=== PATIENT | male | born 1985 | race Caucasian/White ===

== ENCOUNTER 2016-07-20 15:09 | Emergency (ER) | payer OTHER ==
[2016-07-20 15:51] VITALS: BP 122/79
--- NOTE | 2016-07-20 16:13 | UC ---
[facility] Dental HPI - HPI Summary HPI Summary: Patient has pain on upper right jaw. has had abcess in the past and tooth was removed. - History of Current Complaint Chief Complaint: UCDentalProblem Stated Complaint: DENTAL PAIN Time Seen by Provider: 07/20/16 15:42 Hx Obtained From: Patient Onset/Duration: Sudden Onset, Lasting Days Severity: Moderate Pain Intensity: 6 Pain Scale Used: 0-10 Numeric Aggravating: Chewing Alleviating: Nothing Related History: Previous Dental Care on Same Tooth - Allergies/Home Medications Allergies/Adverse Reactions: Allergies Allergy/AdvReac Type Severity Reaction Status Date / Time No Known Allergies Allergy Verified 07/20/16 15:51 Home Medications: Home Medications Albuterol HFA INHALER* [Ventolin HFA Inhaler*] 2 puff INH Q4H PRN 07/20/16 [ History Confirmed 07/20/16] Atorvastatin* [Lipitor*] 20 mg PO 2100 07/20/16 [History Confirmed 07/20/16] Insulin GLARGINE(*) [Lantus(*)] 80 unit BID 07/20/16 [History Confirmed 07/20/16 ] Insulin LISPRO* [HumaLOG*] 20 unit SUBCUT AC 07/20/16 [History Confirmed ] Omeprazole [Prilosec CAP 40 MG] 40 mg PO BEDTIME 07/20/16 [History Confirmed 02/26] Sertraline* [Zoloft*] 25 mg PO BEDTIME 07/20/16 [History Confirmed 07/20/16] Tizanidine HCl [Zanaflex] 4 mg PO TID PRN 07/20/16 [History Confirmed 07/20/16] PMH/Surg Hx/FS Hx/Imm Hx Previously Healthy: Yes Endocrine History Of: Reports: Diabetes - Surgical History Surgical History: None - Family History Known Family History: Positive: Hypertension, Diabetes - Social History Alcohol Use: None Substance Use Type: None Smoking Status (MU): Heavy Every Day Tobacco Smoker Type: Cigarettes Amount Used/How Often: 1/2-1 ppd Review of Systems Constitutional: Fatigue Skin: Negative Eyes: Negative ENT: Dental Pain, Sore Throat, Ear Ache Respiratory: Negative Cardiovascular: Negative Gastrointestinal: Negative Genitourinary: Negative Motor: Negative Neurovascular: Negative Musculoskeletal: Edema - right facial swelling Neurological: Negative Psychological: Negative All Other Systems Reviewed And Are Negative: Yes Physical Exam Triage Information Reviewed: Yes Appearance: Well-Nourished, Ill-Appearing, Pain Distress Vital Signs: Initial Vital Signs Temp 98.8 F 07/20/16 15:42 Pulse 94 07/20/16 15:42 Resp 17 07/20/16 15:42 BP 122/79 07/20/16 15:42 Pulse Ox 97 07/20/16 15:42 Vital Signs Reviewed: Yes Eye Exam: Normal Eyes: Positive: Conjunctiva Clear ENT: Positive: Pharynx normal, Nasal congestion, TMs normal Dental Exam: Other Dental: Positive: Percussion Tenderness @, Gross Decay/Caries @, Abscess @ - above emtpy socket on upper jaw Neck exam: Normal Neck: Positive: Supple, Nontender, Enlarged Nodes @ - right submandibular Respiratory Exam: Normal Respiratory: Positive: Chest non-tender, Lungs clear, Normal breath sounds Cardiovascular Exam: Normal Cardiovascular: Positive: RRR, No Murmur, Pulses Normal Abdominal Exam: Normal Abdomen Description: Positive: Nontender, No Organomegaly, Soft Bowel Sounds: Positive: Present Musculoskeletal Exam: Normal Musculoskeletal: Positive: Strength Intact, ROM Intact, No Edema Neurological Exam: Normal Neurological: Positive: Alert, Muscle Tone Normal Psychological Exam: Normal Skin Exam: Normal Dental Complaint Course/Dx - Course Course Of Treatment: hx obtained, exam performed, medication reviewed. HCS reviewed, patient should have oxycodone left but states that he has exhausted that supply. Will prescribe 2 days of NORCO for the pain as well as an antibiotic. recommend calling Dentist in morning for a follow up appointment. - Differential Dx/Diagnosis Differential Diagnosis/Dx: Dental Abscess, Dental Caries Provider Diagnoses: dental abcess. facial swelling Discharge - Discharge Plan Condition: Stable Disposition: HOME Prescriptions: Amoxicillin/Clavulanate TAB* [Augmentin TAB 875*] 875 mg PO BID #20 tab HYDROcodone/ACETAMIN 5-325 MG* [Agra 5-325 TAB*] 1 tab PO Q8H PRN #6 tab MDD 15 mg PRN Reason: Pain Patient Education Materials: Dental Abscess (ED) Additional Instructions: take the medication as directed and follow up with the dentist. If your sugars go higher and you become symptomatic follow up with the [facility] for insulin adjustment.
== END 2016-07-20 16:18 | disposition home or self-care (01) ==
LOC: UCCORT 15:09
DX: K04.7 Periapical abscess without sinus (principal); E11.9 Type 2 diabetes mellitus without complications; Z79.4 Long term (current) use of insulin; F17.210 Nicotine dependence, cigarettes, uncomplicated
CPT/HCPCS: 99201; G0463

== ENCOUNTER 2016-10-13 23:16 | Inpatient (IN) | payer OTHER ==
[2016-10-14] MEDS ORDERED: NS 0.9% 1000 ML* 1,000 ML IV ONE (00:14)
[2016-10-14 00:54] LABS: Hematocrit 41 % (42-52); Hemoglobin 13.7 g/dl (14.0-18.0); Mean Corpuscular HGB Conc 33 g/dl (31-36); Mean Corpuscular Hemoglobin 30 pg (27-31); Mean Corpuscular Volume 90 fL (80-94); Mean Platelet Volume 8 um3 (7.4-10.4); Red Blood Count 4.56 10^6/ul (4.0-5.4); Red Cell Distribution Width 16 % (10.5-15); White Blood Count 11.4 10^3/ul (3.5-10.8)
[2016-10-14 01:00] LABS: Albumin 3.8 g/dL (3.2-5.2); BUN/Creatinine Ratio 38.3 (8-20); EGFR African American 264.5 (>60); EGFR Non-African American 205.7 (>60); Globulin 2.7 g/dL (2-4); Magnesium 1.5 mg/dL (1.9-2.7); Total Bilirubin 0.4 mg/dL (0.2-1.0); Total Protein 6.5 g/dL (6.4-8.9)
[2016-10-14 01:07] LABS: Urine Bacteria Absent (Absent); Urine Bilirubin Negative (Negative); Urine Glucose Negative (Negative); Urine Nitrite Negative (Negative)
[2016-10-14] MEDS ORDERED: Dextrose 50% Syringe 50 ML* 25 GM/50 ML SYRINGE IV PUSH ONE ×2 (01:19→04:32)
[2016-10-14 01:24] LABS: Potassium 3.3 mmol/L (3.5-5.0)
--- NOTE | 2016-10-14 01:45 | ED ---
Morelia Sanz Salem, scribed for Josh Lewis MD on 10/14/16 at 0135 . HPI Diabetic - HPI Summary HPI Summary: Patient is a 31 y/o male who presents to the ED with hypoglycemia since this morning. He reports he has not been able to keep his sugar up all day despite continuous PO intake. He states it was 26 this morning and the highest it has been all day is 108. Pts PCP is in [place], [place] and has not seen her in over 2 weeks. He reports his sugar is typically high and that he has not taken insulin today. - History Of Current Complaint Chief Complaint: EDDiabeticProb Time Seen by Provider: 10/14/16 00:08 Hx Obtained From: Patient Onset/Duration: Gradual Onset, Lasting Hours Timing: Intermittent Episode Lasting Severity Initially: Moderate Severity Currently: Moderate Character: Alert Aggravating: Nothing Alleviating: Food Associated Signs & Symptoms: Negative - Allergies/Home Medications Allergies/Adverse Reactions: Allergies Allergy/AdvReac Type Severity Reaction Status Date / Time No Known Allergies Allergy Verified 10/13/16 23:20 Home Medications: Home Medications Albuterol HFA INHALER* [Ventolin HFA Inhaler*] 2 puff INH Q4H PRN 10/14/16 [ History Confirmed 10/14/16] Atorvastatin* [Lipitor*] 10 mg PO 2100 10/14/16 [History Confirmed 10/14/16] Escitalopram Oxalate [Lexapro] 10 mg PO DAILY 10/14/16 [History Confirmed ] Insulin GLARGINE(*) [Lantus(*)] 80 units SUBCUT BID 10/14/16 [History Confirmed 10/14/16] Insulin LISPRO* [HumaLOG*] 20 units SUBCUT TID WITH MEALS 10/14/16 [History Confirmed 10/14/16] Omeprazole 40 mg PO DAILY 10/14/16 [History Confirmed 10/14/16] oxyCODONE TAB* [Roxycodone TAB 5 mg*] 5 mg PO Q8H PRN 10/14/16 [History Confirmed 10/14/16] PMH/Surg Hx/FS Hx/Imm Hx Endocrine/Hematology History: Reports: Hx Diabetes Infectious Disease History: No Infectious Disease History: Denies: Traveled Outside the in Last 30 Days - Family History Known Family History: Positive: Cardiac Disease, Diabetes, Other - [place]. Asthma. - Social History Alcohol Use: None Hx Substance Use: No Substance Use Type: Reports: None Hx Tobacco Use: Yes Smoking Status (MU): Heavy Every Day Tobacco Smoker Review of Systems Negative: Fever Positive: Other - Hypoglycemia. All Other Systems Reviewed And Are Negative: Yes Physical Exam Triage Information Reviewed: Yes Vital Signs On Initial Exam: Initial Vitals Temp Pulse Resp BP Pulse Ox 98.0 F 111 15 127/74 100 10/13/16 23:17 10/13/16 23:17 10/13/16 23:17 10/13/16 23:17 10/13/16 23:17 Vital Signs Reviewed: Yes Appearance: Positive: Well-Appearing, No Pain Distress Skin: Positive: Warm Head/Face: Positive: Normal Head/Face Inspection Eyes: Positive: EOMI, ANDREA ENT: Positive: Hearing grossly normal Neck: Positive: Supple, Nontender Respiratory/Lung Sounds: Positive: Breath Sounds Present Cardiovascular: Positive: RRR Abdomen Description: Positive: Nontender, Soft Bowel Sounds: Positive: Present Musculoskeletal: Positive: Strength/ROM Intact Neurological: Positive: Sensory/Motor Intact, Alert, Oriented to Person Place, Time Psychiatric: Positive: Affect/Mood Appropriate - [place] Coma Scale Coma Scale Total: 15 Diagnostics - Vital Signs Vital Signs Temp Pulse Resp BP Pulse Ox 10/13/16 23:17 98.0 F 111 15 127/74 100 - Laboratory Lab Results: Lab Results 10/14/16 10/14/16 10/14/16 Range/Units 00:30 00:30 00:45 WBC 11.4 H (3.5-10.8) 10^3/ul RBC 4.56 (4.0-5.4) 10^6/ul Hgb 13.7 L (14.0-18.0) g/dl Hct 41 L (42-52) % MCV 90 (80-94) fL MCH 30 (27-31) pg MCHC 33 (31-36) g/dl RDW 16 H (10.5-15) % Plt Count 290 (150-450) 10^3/ul MPV 8 (7.4-10.4) um3 Neut % (Auto) 62.0 (38-83) % Lymph % (Auto) 29.6 (25-47) % [place] % (Auto) 6.9 (1-9) % Eos % (Auto) 1.1 (0-6) % Baso % (Auto) 0.4 (0-2) % Absolute Neuts (auto) 7.1 (1.5-7.7) 10^3/ul Absolute Lymphs (auto) 3.4 (1.0-4.8) 10^3/ul Absolute Monos (auto) 0.8 (0-0.8) 10^3/ul Absolute Eos (auto) 0.1 (0-0.6) 10^3/ul Absolute Basos (auto) 0 (0-0.2) 10^3/ul Absolute Nucleated RBC 0.01 10^3/ul Nucleated RBC % 0.1 Sodium 138 (133-145) mmol/L Potassium 3.3 L (3.5-5.0) mmol/L Chloride 105 (101-111) mmol/L Carbon Dioxide 23 (22-32) mmol/L Anion Gap 10 (2-11) mmol/L BUN 18 (6-24) mg/dL Creatinine 0.47 L (0.67-1.17) mg/dL Est GFR ( Amer) 264.5 (>60) Est GFR (Non-Af Amer) 205.7 (>60) BUN/Creatinine Ratio 38.3 H (8-20) Glucose 46 L (70-100) mg/dL Calcium 9.0 (8.6-10.3) mg/dL Magnesium 1.5 L (1.9-2.7) mg/dL Total Bilirubin 0.40 (0.2-1.0) mg/dL AST 23 (13-39) U/L ALT 80 H (7-52) U/L Alkaline Phosphatase 123 H (34-104) U/L Total Protein 6.5 (6.4-8.9) g/dL Albumin 3.8 (3.2-5.2) g/dL Globulin 2.7 (2-4) g/dL Albumin/Globulin Ratio 1.4 (1-3) Urine Color Yellow Urine Appearance Clear Urine pH 5.0 (5-9) Ur Specific [place] 1.027 (1.010-1.030) Urine Protein 1+(30 mg/dl) H (Negative) Urine Ketones Trace H (Negative) Urine Blood Negative (Negative) Urine Nitrate Negative (Negative) Urine Bilirubin Negative (Negative) Urine Urobilinogen Positive H (Negative) Ur Leukocyte Esterase Negative (Negative) Urine WBC (Auto) Trace(0-5/hpf) (Absent) Urine RBC (Auto) 2+(6-10/hpf) H (Absent) Calcium Oxalate Crystal Present H (Absent) Urine Bacteria Absent (Absent) Urine Glucose Negative (Negative) Urine Ascorbic Acid * H (Negative) Result Diagrams: 10/14/16 00:30 10/14/16 00:30 Lab Statement: Any lab studies that have been ordered have been reviewed, and results considered in the medical decision making process. Re-Evaluation - Re-Evaluation First Eval Re-Evaluation Time: 04:37 Change: Unchanged - pt still with recurrent hypoglycemia Comment: Informed pt of plan to admit. He is agreeable. Diabetic Course/Dx - Course Course Of Treatment: 31 y/o male presents with hypoglycemia since this morning. He received IV fluids and Dextrose in the ED, along with apple juice and crackers. POC Glucose (mg/dL): @ 2329 was 83, @ 0205 was 110, @ 0312 was 67, and @ [address] Romo of pt's case. Pt will be admitted. - Diagnoses Provider Diagnoses: Hypoglycemia - Physician Notifications Discussed Care of Patient With: Dr. Romo (hospitalist) @ 0434. Informed him of pt's case. Will admit. Instructed by Provider To: Admit As Inpatient - Critical Care Time Critical Care Time: 30-74 min Discharge - Discharge Plan Condition: Fair Disposition: ADMITTED TO [facility] The documentation as recorded by the Morelia mike Salem accurately reflects the service I personally performed and the decisions made by , Josh Lewis MD.
[2016-10-14] MEDS ORDERED: Dextrose 50% Syringe 50 ML* 25 GM/50 ML SYRINGE ONE (04:33)
[2016-10-14] MEDS ORDERED: Albuterol HFA INHALER* 8 gm MDI INH PRN (05:59)
[2016-10-14] MEDS: D5W 1/2 NS 1000 ML BAG* 1,000 ML IV SCH ×2 (06:34→15:36)
[2016-10-14] MEDS: Omeprazole CAP* 20 MG PO SCH (08:09)
[2016-10-14] MEDS: Citalopram TAB* 20 MG PO SCH (08:10)
[2016-10-14] MEDS: oxyCODONE TAB* 5 MG TAB PO PRN ×2 (08:15→22:36)
--- NOTE | 2016-10-14 10:16 | PN ---
Subjective Date of Service: 10/14/16 Interval History: Patient seen this morning. Says he is feeling much improved. Cannot think of any reason why his BGs may have been low. Does not think he took his insulin incorrectly, has been on this dose for some time. Last injection was 4/2 prior to bed when he took his Lantus 80 units, woke up several hours later with BG in 20s. Most recent medication change was Effexor which was 3 weeks ago. Says he has had a huge amount of stress in his life recently, particularly in the past week. Family History: Unchanged from Admission Social History: Unchanged from Admission Past Medical History: Unchanged from Admission Objective Active Medications: Albuterol (Ventolin Hfa Inhaler*) 2 puff INH Q4H PRN Atorvastatin Calcium (Lipitor*) 10 mg PO 2100 DILAN Citalopram Hydrobromide (Celexa Tab*) 20 mg PO DAILY DILAN Dextrose/Sodium Chloride (D5w 1/2 Ns 1000 Ml Bag*) 1,000 mls @ 125 mls/hr IV PER RATE DILAN Omeprazole (Prilosec Cap*) 40 mg PO 0730 DILAN Oxycodone HCl (Roxycodone Tab*) 5 mg PO Q8H PRN Vital Signs 10/14/16 10/14/16 07:52 08:15 Temperature 97.5 F Pulse Rate 98 Respiratory 18 18 Rate Blood Pressure 125/77 (mmHg) O2 Sat by Pulse 98 Oximetry Oxygen Devices in Use Now: None Appearance: Young, M, laying in bed in NAD Eyes: No Scleral Icterus Ears/Nose/Mouth/Throat: Mucous Membranes Moist Neck: NL Appearance and Movements; NL JVP Respiratory: Symmetrical Chest Expansion and Respiratory Effort, - - Mild expiratory wheezing Cardiovascular: NL Sounds; No Murmurs; No JVD, RRR Abdominal: NL Sounds; No Tenderness; No Distention Lymphatic: No Cervical Adenopathy Extremities: No Edema Skin: No Rash or Ulcers Neurological: Alert and Oriented x 3 Result Diagrams: 10/14/16 00:30 10/14/16 00:30 Assess/Plan/Problems-Billing Assessment: Hypoglycemia in a 31 yo M with hx of DM, asthma, HLD, depression, chronic pain - Patient Problems (1) Hypoglycemia Current Visit: Yes Comment: Etiology not quite clear but I suspect likely related to his insulin, perhaps his stress caused him to take an increased or double dose. Holding insulin for now. Continue D5 infusion and close monitoring of BGs, will try to wean off today. (2) Asthma Current Visit: Yes Comment: Continue albuterol inhaler (3) HLD (hyperlipidemia) Current Visit: Yes Comment: Continue statin (4) DVT prophylaxis Current Visit: Yes Comment: Low risk, ambulate
[2016-10-14] MEDS ORDERED: D5W 1/2 NS 1000 ML BAG* 1,000 ML IV SCH (16:08)
--- NOTE | 2016-10-14 17:12 | HP ---
HISTORY AND PHYSICAL: DATE OF ADMISSION: 10/14/16 CHIEF COMPLAINT: Low blood sugar. HISTORY OF PRESENT ILLNESS: The patient is a 31-year-old gentleman, who is at the [facility] with a chief complaint that his blood sugars keep dropping. He said it started yesterday morning when he noticed his sugars were in the 20s. He said normally they are between 100 and 200. He says last time he took his insulin was on Thursday night. He denies any change in his diet. He denies taking too much insulin. he finally came in because he could not keep them up. He has noticed that he has lost 50 pounds since July. He is very depressed and anxious because he is in a custody baig with this . Furthermore, he is quite stressed because his is with another man' s child. PAST MEDICAL HISTORY: Significant for diabetes mellitus, GERD, depression, anxiety, insomnia, hyperlipidemia, and asthma. CURRENT MEDICATIONS: 1. Albuterol inhaler 2 puffs every 4 hours as needed. 2. Oxycodone 5 mg every 8 hours as needed. 3. Lexapro 10 mg daily. 4. Omeprazole 40 mg daily. 5. Lipitor 10 mg daily. 6. Lispro insulin 20 units subcu t.i.d. with meals. 7. Lantus insulin units subcu twice daily. ALLERGIES: He has no known drug allergies. FAMILY HISTORY: Mother alive and well, but does not know his father. SOCIAL HISTORY: He smokes 1 pack a day for 20 years. No alcohol. No recreational drug use. He is a [id number] dad. He is . He has 4 children. REVIEW OF SYSTEMS: A 14-point review of systems is completed with the patient. All pertinent positives and negatives are in the history of present illness, otherwise negative. PHYSICAL EXAMINATION GENERAL: Pleasant gentleman sitting up in bed, in no acute distress. VITAL SIGNS: Blood pressure 118/67, pulse ox 96%, heart rate 94 beats per minute, temperature 98 degrees. HEENT: Normocephalic, atraumatic. Pupils equal, round, and reactive to light. Moist mucous membranes. NECK: Supple. No JVD, bruits, palpable thyroid, or lymphadenopathy. CHEST: Clear to auscultation and percussion bilaterally. CARDIOVASCULAR: S1, S2 appreciated. ABDOMEN: Positive bowel sounds in all 4 quadrants. Soft, nontender, nondistended. No hepatosplenomegaly. EXTREMITIES: No cyanosis, clubbing, or edema. +2 peripheral pulses bilaterally. NEURO: Alert and oriented x3. Moves all extremities. SKIN: No rashes or abnormalities. DIAGNOSTIC STUDIES/LAB DATA: White count 11.4, hemoglobin 13.7, hematocrit 41 , platelets are 290. Sodium 138, potassium 3.3, chloride 105, CO2 23, BUN 18, creatinine 0.47, glucose is 46. Urinalysis: +2 rbc's, some calcium oxalate crystals, otherwise unremarkable. ASSESSMENT AND PLAN: 1. Hypoglycemia. It is unclear as to the etiology but I suspect that the patient may have taken too much of his own insulin. He is depressed and he is anxious, he has lost weight, and he is supposed to go fight for custody of his children today. Nevertheless, we will admit the patient, place him on D10 half- normal saline drip, check his sugars q.2 hours. Other etiologies include possible insulinoma, but I think this is highly unlikely. 2. Gastroesophageal reflux disease, stable. Continue PPI. 3. Depression. Continue Lexapro. 4. Hyperlipidemia. Continue Lipitor. 5. FEN. Regular diet. 6. The patient is a full code. TIME SPENT: Over 75 minutes was spent on this H and P; more than 40 minutes of which was spent in direct [id number] with the patient in evaluation, physical exam, counseling, and coordination of care. CC: [facility]* [id number]/CPS #: [id number] MTDD
[2016-10-14] MEDS ORDERED: D10W IV SCH ×2 (20:00)
[2016-10-14] MEDS ORDERED: 1/2 NS IV SCH ×2 (20:00)
[2016-10-14] MEDS ORDERED: Atorvastatin* 10 MG TAB PO SCH (21:00)
[2016-10-14] MEDS: 1/2 NS IV SCH ×2 (21:44)
[2016-10-14] MEDS: D10W IV SCH ×2 (21:44)
[2016-10-14] MEDS: Atorvastatin* 10 MG TAB PO SCH (22:38)
[2016-10-15] MEDS: 1/2 NS IV SCH ×6 (04:20→17:28)
[2016-10-15] MEDS: D10W IV SCH ×6 (04:20→17:28)
[2016-10-15] MEDS: Citalopram TAB* 20 MG PO SCH (10:49)
[2016-10-15] MEDS: Omeprazole CAP* 20 MG PO SCH (10:49)
--- NOTE | 2016-10-15 13:43 | PN ---
Subjective Date of Service: 10/15/16 Interval History: Patient seen this morning. No new issues. Still with hypoglycemia at times, gtt increased to D10. Has been taking good PO. Family History: Unchanged from Admission Social History: Unchanged from Admission Past Medical History: Unchanged from Admission Objective Active Medications: Albuterol (Ventolin Hfa Inhaler*) 2 puff INH Q4H PRN Atorvastatin Calcium (Lipitor*) 10 mg PO BEDTIME DILAN Citalopram Hydrobromide (Celexa Tab*) 20 mg PO DAILY DILAN Sodium Chloride 77 meq/ (Dextrose) 1,019.25 mls @ 150 mls/hr IV Q7H DILAN Omeprazole (Prilosec Cap*) 40 mg PO 0730 DILAN Oxycodone HCl (Roxycodone Tab*) 5 mg PO Q8H PRN Vital Signs 10/14/16 10/14/16 10/14/16 15:02 16:25 19:36 Temperature 97.7 F 97.6 F Pulse Rate 91 94 Respiratory 18 18 16 Rate Blood Pressure 135/65 119/71 (mmHg) O2 Sat by Pulse 98 97 Oximetry 10/14/16 10/14/16 10/15/16 22:36 23:27 00:36 Temperature 98.3 F Pulse Rate 93 Respiratory 18 18 18 Rate Blood Pressure 117/52 (mmHg) O2 Sat by Pulse 97 Oximetry 10/15/16 10/15/16 10/15/16 04:20 07:12 08:00 Temperature 97.4 F Pulse Rate 94 97 Respiratory 20 18 18 Rate Blood Pressure 114/46 123/71 (mmHg) O2 Sat by Pulse 97 98 Oximetry 10/15/16 10/15/16 08:23 12:51 Temperature 97.6 F 97.8 F Pulse Rate 88 94 Respiratory 18 18 Rate Blood Pressure 122/72 130/80 (mmHg) O2 Sat by Pulse 98 98 Oximetry Oxygen Devices in Use Now: None Appearance: Young, M, laying in bed in NAD Eyes: No Scleral Icterus Ears/Nose/Mouth/Throat: Mucous Membranes Moist Neck: NL Appearance and Movements; NL JVP Respiratory: Symmetrical Chest Expansion and Respiratory Effort, Clear to Auscultation Cardiovascular: NL Sounds; No Murmurs; No JVD, RRR Abdominal: NL Sounds; No Tenderness; No Distention Lymphatic: No Cervical Adenopathy Extremities: No Edema Skin: No Rash or Ulcers Neurological: Alert and Oriented x 3 Result Diagrams: 10/14/16 00:30 10/14/16 00:30 Additional Lab and Data: Lab Results 10/14/16 10/14/16 10/14/16 Range/Units 00:30 00:30 00:45 WBC 11.4 H (3.5-10.8) 10^3/ul RBC 4.56 (4.0-5.4) 10^6/ul Hgb 13.7 L (14.0-18.0) g/dl Hct 41 L (42-52) % MCV 90 (80-94) fL MCH 30 (27-31) pg MCHC 33 (31-36) g/dl RDW 16 H (10.5-15) % Plt Count 290 (150-450) 10^3/ul MPV 8 (7.4-10.4) um3 Neut % (Auto) 62.0 (38-83) % Lymph % (Auto) 29.6 (25-47) % [place] % (Auto) 6.9 (1-9) % Eos % (Auto) 1.1 (0-6) % Baso % (Auto) 0.4 (0-2) % Absolute Neuts (auto) 7.1 (1.5-7.7) 10^3/ul Absolute Lymphs (auto) 3.4 (1.0-4.8) 10^3/ul Absolute Monos (auto) 0.8 (0-0.8) 10^3/ul Absolute Eos (auto) 0.1 (0-0.6) 10^3/ul Absolute Basos (auto) 0 (0-0.2) 10^3/ul Absolute Nucleated RBC 0.01 10^3/ul Nucleated RBC % 0.1 Sodium 138 (133-145) mmol/L Potassium 3.3 L (3.5-5.0) mmol/L Chloride 105 (101-111) mmol/L Carbon Dioxide 23 (22-32) mmol/L Anion Gap 10 (2-11) mmol/L BUN 18 (6-24) mg/dL Creatinine 0.47 L (0.67-1.17) mg/dL Est GFR ( Amer) 264.5 (>60) Est GFR (Non-Af Amer) 205.7 (>60) BUN/Creatinine Ratio 38.3 H (8-20) Glucose 46 L (70-100) mg/dL Calcium 9.0 (8.6-10.3) mg/dL Magnesium 1.5 L (1.9-2.7) mg/dL Total Bilirubin 0.40 (0.2-1.0) mg/dL AST 23 (13-39) U/L ALT 80 H (7-52) U/L Alkaline Phosphatase 123 H (34-104) U/L Total Protein 6.5 (6.4-8.9) g/dL Albumin 3.8 (3.2-5.2) g/dL Globulin 2.7 (2-4) g/dL Albumin/Globulin Ratio 1.4 (1-3) Urine Color Yellow Urine Appearance Clear Urine pH 5.0 (5-9) Ur Specific [place] 1.027 (1.010-1.030) Urine Protein 1+(30 mg/dl) H (Negative) Urine Ketones Trace H (Negative) Urine Blood Negative (Negative) Urine Nitrate Negative (Negative) Urine Bilirubin Negative (Negative) Urine Urobilinogen Positive H (Negative) Ur Leukocyte Esterase Negative (Negative) Urine WBC (Auto) Trace(0-5/hpf) (Absent) Urine RBC (Auto) 2+(6-10/hpf) H (Absent) Calcium Oxalate Crystal Present H (Absent) Urine Bacteria Absent (Absent) Urine Glucose Negative (Negative) Urine Ascorbic Acid * H (Negative) Assess/Plan/Problems-Billing Assessment: Hypoglycemia in a 31 yo M with hx of DM, asthma, HLD, depression, chronic pain - Patient Problems (1) Hypoglycemia Current Visit: Yes Comment: Etiology not quite clear but I suspect likely related to his insulin, perhaps his stress caused him to take an increased or double dose. Holding insulin for now. Continue D10 infusion and close monitoring of BGs. Cortisol this AM was slightly low but was drawn late, will recheck a 6 AM cortisol level in the AM. Will ask Endocrine to evaluate if not seeing improvement by tomorrow. (2) Asthma Current Visit: Yes Comment: Continue albuterol inhaler (3) HLD (hyperlipidemia) Current Visit: Yes Comment: Continue statin (4) DVT prophylaxis Current Visit: Yes Comment: Low risk, ambulate
[2016-10-15] MEDS: Atorvastatin* 10 MG TAB PO SCH (19:57)
[2016-10-16] MEDS: 1/2 NS IV SCH ×8 (00:25→20:52)
[2016-10-16] MEDS: D10W IV SCH ×8 (00:25→20:52)
[2016-10-16] MEDS: oxyCODONE TAB* 5 MG TAB PO PRN ×2 (00:25→11:02)
[2016-10-16] MEDS: Omeprazole CAP* 20 MG PO SCH (07:56)
[2016-10-16] MEDS: Citalopram TAB* 20 MG PO SCH (07:56)
[2016-10-16] MEDS ORDERED: Cosyntropin* 0.25 MG VIAL IV ONE (08:30)
[2016-10-16] MEDS ORDERED: Cosyntropin* 0.001 MG in Sodium Chloride * 0.5 ML IV ONE (08:30)
--- NOTE | 2016-10-16 10:39 | PN ---
Subjective Date of Service: 10/16/16 Interval History: BGs still low this AM intermittently. Continues on dextrose gtt. No new symptoms. Patient states he is feeling depressed due to outside circumstances. Only has been on Lexapro for "a few weeks". Family History: Unchanged from Admission Social History: Unchanged from Admission Past Medical History: Unchanged from Admission Objective Active Medications: Albuterol (Ventolin Hfa Inhaler*) 2 puff INH Q4H PRN Atorvastatin Calcium (Lipitor*) 10 mg PO BEDTIME DILAN Citalopram Hydrobromide (Celexa Tab*) 20 mg PO DAILY DILAN Sodium Chloride 77 meq/ (Dextrose) 1,019.25 mls @ 150 mls/hr IV Q7H DILAN Omeprazole (Prilosec Cap*) 40 mg PO 0730 DILAN Oxycodone HCl (Roxycodone Tab*) 5 mg PO Q8H PRN Vital Signs 10/15/16 10/15/16 10/15/16 12:51 15:22 19:46 Temperature 97.8 F 97.7 F 98.1 F Pulse Rate 94 99 99 Respiratory 18 17 16 Rate Blood Pressure 130/80 132/75 130/77 (mmHg) O2 Sat by Pulse 98 98 97 Oximetry 10/15/16 10/15/16 10/16/16 20:00 23:31 00:25 Temperature 98.3 F Pulse Rate 107 Respiratory 16 16 Rate Blood Pressure 128/70 (mmHg) O2 Sat by Pulse 98 Oximetry 10/16/16 10/16/16 10/16/16 02:25 07:52 08:00 Temperature 97.4 F Pulse Rate 97 Respiratory 16 16 16 Rate Blood Pressure 108/57 (mmHg) O2 Sat by Pulse 97 Oximetry Oxygen Devices in Use Now: None Appearance: Young, M, laying in bed in NAD Eyes: No Scleral Icterus Ears/Nose/Mouth/Throat: Mucous Membranes Moist Neck: NL Appearance and Movements; NL JVP Respiratory: Symmetrical Chest Expansion and Respiratory Effort, Clear to Auscultation Cardiovascular: NL Sounds; No Murmurs; No JVD, RRR Abdominal: NL Sounds; No Tenderness; No Distention Lymphatic: No Cervical Adenopathy Extremities: No Edema Skin: No Rash or Ulcers Neurological: Alert and Oriented x 3 Result Diagrams: 10/14/16 00:30 10/14/16 00:30 Additional Lab and Data: Lab Results 10/14/16 10/14/16 10/14/16 Range/Units 00:30 00:30 00:45 WBC 11.4 H (3.5-10.8) 10^3/ul RBC 4.56 (4.0-5.4) 10^6/ul Hgb 13.7 L (14.0-18.0) g/dl Hct 41 L (42-52) % MCV 90 (80-94) fL MCH 30 (27-31) pg MCHC 33 (31-36) g/dl RDW 16 H (10.5-15) % Plt Count 290 (150-450) 10^3/ul MPV 8 (7.4-10.4) um3 Neut % (Auto) 62.0 (38-83) % Lymph % (Auto) 29.6 (25-47) % [place] % (Auto) 6.9 (1-9) % Eos % (Auto) 1.1 (0-6) % Baso % (Auto) 0.4 (0-2) % Absolute Neuts (auto) 7.1 (1.5-7.7) 10^3/ul Absolute Lymphs (auto) 3.4 (1.0-4.8) 10^3/ul Absolute Monos (auto) 0.8 (0-0.8) 10^3/ul Absolute Eos (auto) 0.1 (0-0.6) 10^3/ul Absolute Basos (auto) 0 (0-0.2) 10^3/ul Absolute Nucleated RBC 0.01 10^3/ul Nucleated RBC % 0.1 Sodium 138 (133-145) mmol/L Potassium 3.3 L (3.5-5.0) mmol/L Chloride 105 (101-111) mmol/L Carbon Dioxide 23 (22-32) mmol/L Anion Gap 10 (2-11) mmol/L BUN 18 (6-24) mg/dL Creatinine 0.47 L (0.67-1.17) mg/dL Est GFR ( Amer) 264.5 (>60) Est GFR (Non-Af Amer) 205.7 (>60) BUN/Creatinine Ratio 38.3 H (8-20) Glucose 46 L (70-100) mg/dL Calcium 9.0 (8.6-10.3) mg/dL Magnesium 1.5 L (1.9-2.7) mg/dL Total Bilirubin 0.40 (0.2-1.0) mg/dL AST 23 (13-39) U/L ALT 80 H (7-52) U/L Alkaline Phosphatase 123 H (34-104) U/L Total Protein 6.5 (6.4-8.9) g/dL Albumin 3.8 (3.2-5.2) g/dL Globulin 2.7 (2-4) g/dL Albumin/Globulin Ratio 1.4 (1-3) Urine Color Yellow Urine Appearance Clear Urine pH 5.0 (5-9) Ur Specific [place] 1.027 (1.010-1.030) Urine Protein 1+(30 mg/dl) H (Negative) Urine Ketones Trace H (Negative) Urine Blood Negative (Negative) Urine Nitrate Negative (Negative) Urine Bilirubin Negative (Negative) Urine Urobilinogen Positive H (Negative) Ur Leukocyte Esterase Negative (Negative) Urine WBC (Auto) Trace(0-5/hpf) (Absent) Urine RBC (Auto) 2+(6-10/hpf) H (Absent) Calcium Oxalate Crystal Present H (Absent) Urine Bacteria Absent (Absent) Urine Glucose Negative (Negative) Urine Ascorbic Acid * H (Negative) Assess/Plan/Problems-Billing Assessment: Hypoglycemia in a 31 yo M with hx of DM, asthma, HLD, depression, chronic pain - Patient Problems (1) Hypoglycemia Current Visit: Yes Comment: BGs continue to be low on dextrose. Cortisol level low this AM. Will check cosyntropin stim test, will also check ACTH, renin , aldosterone, 21-hydroxylase level. May be adrenal insufficiency, will likely start hydrocortisone after testing. (2) Asthma Current Visit: Yes Comment: Continue albuterol inhaler (3) HLD (hyperlipidemia) Current Visit: Yes Comment: Continue statin (4) Depression Current Visit: Yes Comment: Started medications just within last few weeks, has signicant life stressors. Would prefer to continue with current regimen for now. (5) DVT prophylaxis Current Visit: Yes Comment: Low risk, ambulate
[2016-10-16] MEDS: Hydrocortisone TAB* 10 MG PO SCH (13:58)
[2016-10-16] MEDS: Hydrocortisone TAB* 5 MG PO SCH (17:25)
[2016-10-16] MEDS: Atorvastatin* 10 MG TAB PO SCH (20:06)
[2016-10-17] MEDS: 1/2 NS IV SCH ×6 (04:02→17:55)
[2016-10-17] MEDS: D10W IV SCH ×6 (04:02→17:55)
[2016-10-17] MEDS: Omeprazole CAP* 20 MG PO SCH (08:19)
[2016-10-17] MEDS: Hydrocortisone TAB* 10 MG PO SCH (08:20)
[2016-10-17] MEDS: Hydrocortisone TAB* 5 MG PO SCH (08:20)
[2016-10-17] MEDS: Citalopram TAB* 20 MG PO SCH (08:20)
[2016-10-17] MEDS ORDERED: Dextrose 50% Syringe 50 ML* 25 GM/50 ML SYRINGE IV PUSH PRN ×2 (08:57→09:10)
--- NOTE | 2016-10-17 09:13 | PN ---
Subjective Date of Service: 10/17/16 Interval History: Patient seen this morning. No new complaints. Continues to have episodes of hypoglycemia. States he has been on Metformin and Glipizide years ago but has none of that still present in the house. Family History: Unchanged from Admission Social History: Unchanged from Admission Past Medical History: Unchanged from Admission Objective Active Medications: Albuterol (Ventolin Hfa Inhaler*) 2 puff INH Q4H PRN Atorvastatin Calcium (Lipitor*) 10 mg PO BEDTIME DILAN Citalopram Hydrobromide (Celexa Tab*) 20 mg PO DAILY DILAN Dextrose (D50w Syringe 50 Ml*) 25 gm IV PUSH .FOR FS < 60 - SS PRN Sodium Chloride 77 meq/ (Dextrose) 1,019.25 mls @ 150 mls/hr IV Q7H DILAN Omeprazole (Prilosec Cap*) 40 mg PO 0730 DILAN Oxycodone HCl (Roxycodone Tab*) 5 mg PO Q8H PRN Vital Signs 10/16/16 10/16/16 10/16/16 11:02 13:02 16:56 Temperature 98.5 F Pulse Rate 103 Respiratory 18 18 17 Rate Blood Pressure 144/79 (mmHg) O2 Sat by Pulse 98 Oximetry 10/16/16 10/16/16 10/17/16 20:07 23:37 07:31 Temperature 97.6 F Pulse Rate 100 Respiratory 18 19 16 Rate Blood Pressure 125/57 (mmHg) O2 Sat by Pulse 97 Oximetry 10/17/16 07:32 Temperature Pulse Rate Respiratory 16 Rate Blood Pressure (mmHg) O2 Sat by Pulse Oximetry Oxygen Devices in Use Now: None Appearance: Young, M, laying in bed in NAD Eyes: No Scleral Icterus Ears/Nose/Mouth/Throat: Mucous Membranes Moist Neck: NL Appearance and Movements; NL JVP Respiratory: Symmetrical Chest Expansion and Respiratory Effort, Clear to Auscultation Cardiovascular: NL Sounds; No Murmurs; No JVD, RRR Abdominal: NL Sounds; No Tenderness; No Distention Lymphatic: No Cervical Adenopathy Extremities: No Edema Skin: No Rash or Ulcers Neurological: Alert and Oriented x 3 Result Diagrams: 10/14/16 00:30 10/14/16 00:30 Additional Lab and Data: Assess/Plan/Problems-Billing Assessment: Hypoglycemia in a 31 yo M with hx of DM, asthma, HLD, depression, chronic pain - Patient Problems (1) Hypoglycemia Current Visit: Yes Comment: BGs continue to be low on dextrose. Cortisol levels were low initially in AM but were higher prior to stim test and seems to have responded appropriately, discussed with Dr. Plunkett who will consult on the patient. Will check abdominal US to evaluate for insulinoma. Will add on insulin level, proinsulin, c pepetide and IGF1. ACTH, renin, aldosterone, 21- hydroxylase level pending. (2) Asthma Current Visit: Yes Comment: Continue albuterol inhaler (3) HLD (hyperlipidemia) Current Visit: Yes Comment: Continue statin (4) Depression Current Visit: Yes Comment: Started medications just within last few weeks, has signicant life stressors. Would prefer to continue with current regimen for now. (5) DVT prophylaxis Current Visit: Yes Comment: Low risk, ambulate
[2016-10-17 14:39] LABS: ACTH 24 pg/mL
--- NOTE | 2016-10-17 15:22 | RAD ---
INDICATION: Evaluate for insulinoma. COMPARISON: There are no prior studies available for comparison. TECHNIQUE: Multiple real-time images of the right upper quadrant were obtained. FINDINGS: The gallbladder appear normal. No gallbladder wall thickening or pericholecystic fluid is present. No intra or extrahepatic ductal distention is present. The common bile duct measured 0.4 cm in diameter. The liver is normal in size without focal abnormality and increased in echogenicity suggestive of fatty infiltration. The pancreas is partially visualized. No pancreatic ductal distention or mass is seen. The right kidney is normal in size without evidence for hydronephrosis. IMPRESSION: 1. THE PANCREAS IS PARTIALLY VISUALIZED, NO MASS IS SEEN. IF THERE IS CONCERN FOR AN INSULINOMA CONSIDER A THREE-PHASE CT OF THE PANCREAS FOR FURTHER EVALUATION. 2. FINDINGS SUGGESTIVE OF FATTY INFILTRATION OF THE LIVER.
[2016-10-17] MEDS: Atorvastatin* 10 MG TAB PO SCH (21:10)
[2016-10-17] MEDS: oxyCODONE TAB* 5 MG TAB PO PRN (21:10)
[2016-10-18] MEDS ORDERED: Dextrose 50% Syringe 50 ML* 25 GM/50 ML SYRINGE IV PUSH PRN (07:48)
[2016-10-18] MEDS: Omeprazole CAP* 20 MG PO SCH (08:41)
[2016-10-18] MEDS: Citalopram TAB* 20 MG PO SCH (08:41)
[2016-10-18] MEDS: Insulin LISPRO* 1 UNITS UNIT SUBCUT SCH ×3 (09:02→12:19)
[2016-10-18 10:53] VITALS: BP 117/72
--- NOTE | 2016-10-18 11:05 | DCNOTE ---
Patient seen this morning. Feeling well, thinks he is doing better. Taken off of dextrose gtt yesterday evening and maintained BGs in 200s. On exam, RRR, s1 and s2 present, no m/g/r, abd soft, NTND, BS+, lungs CTA B/L Spoke with Dr. Plunkett, as hypoglycemia has resolved will see pt in the clinic. Will discharge home today on low doses of insulin, may escalate as needed.
[2016-10-18] MEDS ORDERED: Insulin LISPRO* 1 UNITS UNIT SUBCUT SCH (11:30)
[2016-10-18 14:34] LABS: Renin 1.4 ng/mL/h
--- NOTE | 2016-10-19 08:56 | DS ---
DISCHARGE SUMMARY: DATE OF ADMISSION: 10/14/16 DATE OF DISCHARGE: 10/18/16 PRIMARY CARE PHYSICIAN: Jayesh Plunkett MD PRINCIPAL DISCHARGE DIAGNOSIS: Hypoglycemia thought to be due to incorrect insulin use. SECONDARY DIAGNOSES: 1. Gastroesophageal reflux disease. 2. Diabetes. 3. Depression. 4. Anxiety. 5. Insomnia. 6. Hyperlipidemia. 7. Asthma. DISCHARGE MEDICATION REGIMEN: 1. Albuterol 2 puffs inhaled every 4 hours as needed for shortness of breath or wheezing. 2. Omeprazole 40 mg by mouth at bedtime. 3. Atorvastatin 20 mg by mouth nightly. 4. Tizanidine 4 mg by mouth 3 times daily as needed for back pain. 5. Albuterol inhaler 2 puffs inhaled every 4 hours as needed for shortness of breath or wheezing. 6. Oxycodone 5 mg by mouth every 8 hours as needed for pain. 7. Lexapro 10 mg by mouth daily. 8. Lantus previously on 80 units subcutaneous twice daily. We will restart on 10 units subcutaneous daily once fasting sugars are greater than 180. 9. Insulin lispro was on 20 units subcutaneous 3 times a day with meals. We will start at 5 units subcutaneous 3 times a day with meals. STUDIES DONE DURING HOSPITALIZATION: Abdominal ultrasound, impression: Pancreas was partially visualized. No mass is seen. There is concern for insulinoma. Consider 3-phase CT of the pancreas. Findings suggestive of fatty infiltration of the liver. HISTORY OF PRESENT ILLNESS AND HOSPITAL SUMMARY: Please see the full history and physical dictated by Dr. Jono Romo for full details. Briefly, Mr. Gomez is a 31- year-old man who presented to the hospital after he had a day of difficulty keeping his blood sugars up. He stated that he woke up overnight with blood sugars in the 20s. He tried eating and drinking over the course of the day; however, he had difficulty maintaining his sugars. He came in to the hospital for further evaluation. Additionally, it was felt that the patient may have incorrectly taken his insulin. He states he has been going through a significant amount of stress lately; however, the following days, despite a dextrose infusion, the patient's blood sugars remained low. I spoke with Dr. Plunkett who recommended some additional testing including a cosyntropin stimulation test that was unremarkable despite a relatively low cortisol in the morning. The patient also had an ACTH that was drawn that was also within normal limits. Additional tests at this time including insulin level, proinsulin C-peptide, renin aldosterone, insulin-like growth factor, and 21-hydroxylase antibody are pending at this time. An ultrasound of the abdomen was obtained to look for an evidence of insulinoma; however, this was unremarkable. In the evening of 10/17/16, the patient's blood sugars began to rise. He was able to be weaned off the drip. Following the morning, he maintained his sugars and was restarted on the low dose of insulin. He was instructed to continue taking 5 units of lispro subcutaneous with meals initially and to hold off on his Lantus until fasting blood sugars became greater than 180 at which point, he could restart with 10 units daily. He will need to keep a close eye on his blood sugars and adjust accordingly over the following days. He will follow up with Dr. Plunkett as an outpatient. Despite all the pending testing, it seems most likely that this was due to incorrect insulin use rather than any other etiology. TIME SPENT: Total time spent on this discharge, 40 minutes. This is a summary of hospitalization. Please see the full medical record for further details. CC: Dr. Plunkett* [id number]/[facility] #: [id number] MTDD
[2016-10-21 14:24] LABS: IGF1 Z-score 1.04 SD
== END 2016-10-18 12:30 | disposition home or self-care (01) | DRG 420 ==
LOC: ED 23:16 → MERGE 10-14 06:30 → MED 10-14 06:30 → OBSVTOIN 10-15 11:49
PROVIDERS: ADMIT Internal Medicine; ATTEND Hospitalist
DX: E11.649 Type 2 diabetes mellitus with hypoglycemia without coma (principal); F32.9 Major depressive disorder, single episode, unspecified; K21.9 Gastro-esophageal reflux disease without esophagitis; F41.9 Anxiety disorder, unspecified; G47.00 Insomnia, unspecified; E78.5 Hyperlipidemia, unspecified; J45.909 Unspecified asthma, uncomplicated; F17.210 Nicotine dependence, cigarettes, uncomplicated; Z79.891 Long term (current) use of opiate analgesic; Z79.899 Other long term (current) drug therapy; Z79.4 Long term (current) use of insulin
CPT/HCPCS: 36415; 76705; 80053; 81003; 81015; 82024; 82088; 82533; 83519; 83525; 83735; 84206; 84244; 84305; 84681; 85025; 94760; 99406; A9270-GY; G0378; J0834

== ENCOUNTER 2017-06-26 06:31 | Observation (INO) | payer OTHER ==
[2017-06-26 07:35] LABS: Hematocrit 45 % (42-52); Hemoglobin 15.4 g/dl (14.0-18.0); Mean Corpuscular HGB Conc 34 g/dl (31-36); Mean Corpuscular Hemoglobin 32 pg (27-31); Mean Corpuscular Volume 92 fL (80-94); Mean Platelet Volume 8 um3 (7.4-10.4); Red Blood Count 4.86 10^6/ul (4.0-5.4); Red Cell Distribution Width 13 % (10.5-15); White Blood Count 8.7 10^3/ul (3.5-10.8)
[2017-06-26 07:47] LABS: Albumin 4.5 g/dL (3.2-5.2); BUN/Creatinine Ratio 20.2 (8-20); Calcium 10.3 mg/dL (8.6-10.3); EGFR African American 90.5 (>60); EGFR Non-African American 70.4 (>60); Magnesium 1.8 mg/dL (1.9-2.7); Total Bilirubin 0.6 mg/dL (0.2-1.0); Total Protein 7.5 g/dL (6.4-8.9)
[2017-06-26] MEDS ORDERED: D5W 500 ML BAG* 500 ML IV SCH (08:00)
[2017-06-26 10:09] LABS: Urine Bacteria Absent (Absent); Urine Bilirubin Negative (Negative); Urine Glucose 2+(150 mg/dL) (Negative); Urine Nitrite Negative (Negative)
[2017-06-26] MEDS ORDERED: Acetaminophen TAB* 325 MG PO PRN (15:05)
[2017-06-26] MEDS ORDERED: Al Hydrox/Mg Hydrox/Simet LIQ* 30 ML UDC PO PRN (15:05)
[2017-06-26] MEDS ORDERED: Albuterol HFA INHALER* 8 gm MDI INH PRN (15:07)
[2017-06-26] MEDS ORDERED: FLUoxetine CAP* 20 MG PO SCH (16:00)
[2017-06-26] MEDS ORDERED: Haloperidol TAB* 5 MG PO PRN (16:43)
[2017-06-26] MEDS ORDERED: LORazepam TAB(*) 1 MG PO PRN (16:44)
[2017-06-26] MEDS ORDERED: LORazepam TAB(*) 1 MG PO ONE (16:52)
[2017-06-26] MEDS ORDERED: Nicotine GUM* 2 MG PO PRN (16:53)
[2017-06-26] MEDS ORDERED: Nicotine Inhaler* 10 MG AMP INH PRN ×2 (16:53→20:35)
[2017-06-26] MEDS ORDERED: Mouth Piece, Nicotine* 1 EACH CARTRIDGE INH ONE (17:00)
[2017-06-26] MEDS ORDERED: LORazepam TAB(*) 1 MG ONE (17:09)
[2017-06-26] MEDS ORDERED: OLANzapine TAB* 2.5 MG ONE (17:10)
[2017-06-26] MEDS: Insulin LISPRO* 1 UNITS UNIT SUBCUT SCH ×3 (18:15→23:50)
[2017-06-26] MEDS: Omeprazole CAP* 20 MG PO SCH (18:21)
[2017-06-26] MEDS ORDERED: FLUoxetine CAP* 20 MG ONE (18:27)
[2017-06-26] MEDS ORDERED: Insulin GLARGINE(*) 1 UNITS UNIT SUBCUT ONE (19:30)
[2017-06-26] MEDS ORDERED: Dextrose 50% Syringe 50 ML* 25 GM/50 ML SYRINGE IV PUSH PRN (19:46)
[2017-06-26] MEDS: FLUoxetine CAP* 20 MG PO SCH (20:21)
[2017-06-26] MEDS ORDERED: OLANzapine TAB* 5 MG PO SCH (21:00)
[2017-06-26] MEDS: oxyCODONE TAB* 5 MG TAB PO PRN (21:50)
--- NOTE | 2017-06-27 00:44 | HP ---
CC: Alejandra Brito, RADHA; Dr. Gallo * HISTORY AND PHYSICAL: DATE OF ADMISSION: 06/26/17 PRIMARY CARE PROVIDER: Alejandra Brito CHIEF COMPLAINT: Sugar of over 600. HISTORY OF PRESENT ILLNESS: All Gomez is a 31-year-old male who had been at our psychiatric ED flex unit for the past 13 hours waiting to be admitted to the psychiatry unit for suicidal attempt after discussion with the patient's psychiatrist, Dr. Gallo, who originally admitted the patient; the patient took 100 units of insulin to attempt suicide. The patient himself stated that he was at work and he took the 100 units of insulin because he "felt that his sugar was high." He stated that he forgot his glucometer and he was unable to check his sugars. Nevertheless, he felt that his sugar was high and he injected himself with a short-acting insulin of 100 units. Please also note that usually the patient takes insulin Humalog 30 units with each meal. Subsequently, the patient became hypoglycemic and he stated that he was arguing with his and his mother and it got "ugly." He came into the ED for psychiatric evaluation. Here he was deemed to be a candidate for an involuntary admission for suicidal attempt. He spent 13 hours in flex unit and was noted to have sugars of 600 at 1816 p.m. During the course of the past 13 hours, he did not receive any insulin until that time. He also stated that last time, he used his insulin Lantus which he usually takes on a daily basis at 60 units was over 24 hours prior. Due to marked hyperglycemia and uncontrolled diabetes, at this point the patient is going to be placed on observation on medical floor 1-to-1 due to suicide watch. PAST MEDICAL HISTORY: 1. History of diabetes. The patient stated that he was never diagnosed of type diabetes that he has. He had been diabetic for 8 years. 2. The patient has history of gastroesophageal reflux disease. 3. Depression. 4. Anxiety. 5. Insomnia. 6. Hyperlipidemia. 7. Asthma. CURRENT MEDICATIONS: Include: 1. Hydroxyzine 10 mg daily. 2. Omeprazole 40 mg daily. 3. Fluoxetine 20 mg daily. 4. Insulin lispro 30 units with each meal 3 times a day. 5. Insulin Lantus 60 units in IM. 6. Albuterol inhaler on a p.r.n. basis. 7. Oxycodone 5 mg every 8 hours p.r.n. ALLERGIES: No known drug allergies. FAMILY HISTORY: Father unknown. Mother is healthy. SOCIAL HISTORY: The patient smokes 1 pack per day for over 20 years. He denies any alcohol or drug use. 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 He is from his who is staying with their 4 children with the patient's mother at their house. Apparently, the patient's got with the child from another man and . Right now all the 5 children are living with the patient's mother and ex-. REVIEW OF SYSTEMS: Positive for chronic lower back pain and exacerbation since the patient did not receive oxycodone during his ED stay. PHYSICAL EXAMINATION GENERAL: The patient is a very pleasant 31-year-old male who is in no acute distress. Alert, awake and oriented x3. VITAL SIGNS: Blood pressure of 110/62, heart rate of 90 and regular, respiratory rate 14, oxygen saturation 99% on room air, temperature 98.5. HEENT: Head: Atraumatic, normocephalic. Eyes: Pupils are equal and reactive to light and accommodation. Oropharynx clear. Mucosa moist. NECK: Supple. No JVD and no bruits bilaterally. RESPIRATORY: Clear to auscultation bilaterally. CARDIOVASCULAR: Regular rate and rhythm. No murmur. ABDOMEN: Soft and nontender. Bowel sound are present in all 4 quadrants. EXTREMITIES: There is no edema. Pulses are +2 bilaterally. There is no clubbing or cyanosis. NEURO EVALUATION: Speech clear. Cranial nerves II through XII grossly intact. Motor strength is 5/5 bilaterally. PSYCHIATRIC EVALUATION: The patient is oriented x3 with no evidence of anxiety. DIAGNOSTIC STUDIES/LABORATORY DATA: Include the white blood cell count of 8.7 , hemoglobin 15.4, hematocrit of 45 and platelets of 282. Sodium was 133, potassium 4.0, chloride 98, carbon dioxide 22, BUN 24, creatinine 1.19. The patient's sugar in the morning today was 41, currently is 658. ASSESSMENT AND PLAN: 1. In regards to the patient's out of control diabetes, the patient missed his Lantus insulin for over 24 hours. He was hypoglycemic on his initial evaluation in the ED, but that was due to overdose of short-acting insulin. Unfortunately, now, his sugars are over 600. At this point, I will attempt to correct it with 20 units of insulin of Lantus. The patient also received insulin lispro of 30 units just within the past hour and a half. The patient is going to be placed on insulin sliding scale with Accu-Cheks every 4 hours. Plan to get him back on the track for his insulin Lantus in the morning at 60 units. 2. In regards to the patient's suicidal attempt, the patient denies being suicidal or attempting suicide when he used 100 units of insulin for feeling "hyperglycemic." Nevertheless, after discussion with Dr. Gallo, from Psychiatry, it was deemed that the patient needs to be placed on 1-to-1 observation for suicide watch. 3. For his depression, as per Psychiatry, his outpatient medications are going to be continued apart from holding hydroxyzine. 4. For chronic lower back pain, oxycodone is going to be restarted. 5. For DVT prophylaxis, the patient is at low risk. TIME SPENT: Approximately 55 minutes was spent on admission of this patient, more than half of that time was spent [id number] with the patient during the interview and physical exam. [id number]/[facility] #: [id number] MELLISA
[2017-06-27] MEDS: Insulin LISPRO* 1 UNITS UNIT SUBCUT SCH ×7 (02:35→18:13)
[2017-06-27] MEDS: NS 0.9% 1000 ML* 1,000 ML IV SCH ×2 (02:45→09:25)
[2017-06-27 08:05] LABS: BUN/Creatinine Ratio 29.9 (8-20); Calcium 8.7 mg/dL (8.6-10.3); EGFR African American 175.7 (>60); EGFR Non-African American 136.6 (>60); Potassium 3.6 mmol/L (3.5-5.0)
[2017-06-27] MEDS ORDERED: Methylphenidate ER TAB* 18 MG PO SCH (09:00)
[2017-06-27] MEDS ORDERED: Insulin GLARGINE(*) 1 UNITS UNIT SUBCUT SCH ×3 (09:00→17:45)
[2017-06-27] MEDS ORDERED: Insulin LISPRO* 1 UNITS UNIT SUBCUT ONE (09:06)
[2017-06-27] MEDS: Omeprazole CAP* 20 MG PO SCH (09:18)
[2017-06-27] MEDS: FLUoxetine CAP* 20 MG PO SCH (09:18)
--- NOTE | 2017-06-27 14:40 | HP ---
HISTORY AND PHYSICAL/DISCHARGE SUMMARY: DATE OF ADMISSION: 06/26/17 DATE OF DISCHARGE: 06/26/17 ADMISSION HISTORY: All Gomez is a 31-year-old male who was brought to the emergency room following an intentional overdose on 100 units of insulin in an alleged attempt to end his own life. Although the patient denied suicidality, telephone calls with his family for collateral information indicated that he had been making suicidal statements and it was determined that he would benefit from involuntary admission to the unit. Unfortunately, after the patient was medically cleared and given orders to be transferred to the behavioral science unit, he developed blood glucose values that were greater than 600. This was noted by the behavioral science staff and brought to the attention of the emergency room. They felt that the patient had already been discharged from the emergency room even though he was still on their santana because of the fact that admission orders had been written to the [facility]. [facility] staff were able to consult hospitalist physician, Dr. Elaine Tripathi, who saw the patient while still in the emergency room. She felt that he would benefit from admission to the medical unit. For this reason, All was promptly discharged. It must be stated that Mr. Gomez was not personally evaluated directly by this handbook writer. In fact, he never crossed the threshold of the behavioral science unit, but was in the emergency room for the entire time. This constitutes his H and P and discharge summary for that admission. Psychiatry will likely follow him on the medical unit and we can consider admitting him to the [facility] once his blood sugars are stable. [id number]/[facility] #: [id number] MELLISA
[2017-06-27] MEDS: oxyCODONE TAB* 5 MG TAB PO PRN (15:42)
[2017-06-27 15:47] VITALS: BP 111/64
--- NOTE | 2017-06-27 16:26 | PN ---
Subjective Date of Service: 06/27/17 Interval History: Mr. Gomez denies complaint this AM. He specifically denies chest pain, SOB, nausea, or abdominal pain. Objective Active Medications: Acetaminophen (Tylenol Tab*) 650 mg PO Q4H PRN Al Hydrox/Mg Hydrox/Simethicone (Maalox Plus*) 30 ml PO Q4H PRN Albuterol (Ventolin Hfa Inhaler*) 2 puff INH Q4H PRN Dextrose (D50w Syringe 50 Ml*) 12.5 gm IV PUSH .FOR FS < 60 - SS PRN Fluoxetine HCl (Prozac Cap*) 40 mg PO DAILY DILAN Haloperidol (Haldol Tab*) 5 mg PO Q4H PRN Sodium Chloride (Ns 0.9% 1000 Ml*) 1,000 mls @ 150 mls/hr IV PER RATE DILAN Insulin Glargine (Lantus(*)) 40 units SUBCUT QAM DILAN Insulin Human Lispro (Humalog*) 0 units SUBCUT Q4HR DILAN Methylphenidate HCl (Concerta Er Tab*) 18 mg PO DAILY DILAN Nicotine (Nicotine Inhaler*) 10 mg INH Q2H PRN Nicotine Polacrilex (Nicotine Gum*) 2 mg PO Q2H PRN Olanzapine (Zyprexa Tab*) 5 mg PO BEDTIME DILAN Olanzapine (Zyprexa Tab*) 2.5 mg PO ONCE ONE Omeprazole (Prilosec Cap*) 40 mg PO DAILY DILAN Oxycodone HCl (Roxycodone Tab*) 5 mg PO Q8H PRN Vital Signs - 8 hr 06/27/17 06/27/17 06/27/17 11:49 15:42 15:47 Temperature 97.9 F 97.9 F Pulse Rate 81 80 Respiratory 16 16 16 Rate Blood Pressure 113/57 111/64 (mmHg) O2 Sat by Pulse 98 98 Oximetry Oxygen Devices in Use Now: None Appearance: Patient sitting up in bed in NAD Eyes: No Scleral Icterus Ears/Nose/Mouth/Throat: Mucous Membranes Moist Neck: Trachea Midline Respiratory: Symmetrical Chest Expansion and Respiratory Effort, Clear to Auscultation Cardiovascular: NL Sounds; No Murmurs; No JVD, No Edema Abdominal: NL Sounds; No Tenderness; No Distention Lymphatic: No Cervical Adenopathy Extremities: No Edema Skin: No Rash or Ulcers Neurological: Alert and Oriented x 3, NL Muscle Strength and Tone Nutrition: Taking PO's Result Diagrams: 06/26/17 06:59 06/27/17 07:27 Assess/Plan/Problems-Billing Assessment: Mr. Gomez is a 31 yo male with PMH of suicide attempt with insulin overdose and diabetes who was admitted on 06/26/17 with hyperglycemia in setting of missing lantus after reported repeat episode of intentional overdose with lispro insulin. - Patient Problems (1) Diabetes Comment: - Hyperglycemia resolved. BG 100s. - Resume home lantus dose, BG relatively low therefore plan for SSI coverage with meals and titrate up as needed. (2) Suicide attempt Comment: - Patient to be transferred to [facility] for psychiatric services. (3) Asthma Comment: - No evidence of acute exacerbation - Continue albuterol inhaler (4) HLD (hyperlipidemia) Comment: Continue statin (5) DVT prophylaxis Comment: - Low risk, ambulate Status and Disposition: OBV. Discharge to [facility].
[2017-06-27] MEDS ORDERED: OLANzapine TAB* 2.5 MG PO ONE (16:51)
== END 2017-06-27 20:00 ==
LOC: ED 06:31 → MED 19:45
PROVIDERS: ADMIT Internal Medicine; ATTEND Internal Medicine
DX: E13.65 Other specified diabetes mellitus with hyperglycemia (principal); F41.8 Other specified anxiety disorders; T38.3X2A Poisoning by insulin and oral hypoglycemic [antidiabetic] drugs, intentional self-harm, initial encounter; Y92.89 Other specified places as the place of occurrence of the external cause; K21.9 Gastro-esophageal reflux disease without esophagitis; G47.00 Insomnia, unspecified; E78.5 Hyperlipidemia, unspecified; J45.909 Unspecified asthma, uncomplicated; Z79.4 Long term (current) use of insulin; F17.210 Nicotine dependence, cigarettes, uncomplicated; M54.5 Low back pain
CPT/HCPCS: 36415; 80048; 80053; 81003; 81015; 82947; 83605; 83735; 85025; 85610; 85730; 96360; 96361; 99285; A9270-GY; G0378

== ENCOUNTER 2017-06-27 12:38 | Inpatient (IN) | payer MEDICAID, OTHER ==
[2017-06-27] MEDS ORDERED: Al Hydrox/Mg Hydrox/Simet LIQ* 30 ML UDC PO PRN (13:25)
[2017-06-27] MEDS ORDERED: Nicotine GUM* 2 MG PO PRN (13:28)
[2017-06-27] MEDS ORDERED: Albuterol HFA INHALER* 8 gm MDI INH PRN (13:28)
[2017-06-27] MEDS ORDERED: Nicotine Inhaler* 10 MG AMP INH PRN (13:28)
[2017-06-27] MEDS ORDERED: Haloperidol TAB* 5 MG PO PRN (13:34)
[2017-06-27] MEDS: Nicotine Patch Removal NOTE FOLLOW UP SCH (20:55)
[2017-06-27] MEDS: Insulin LISPRO* 1 UNITS UNIT SUBCUT SCH (20:58)
[2017-06-27] MEDS ORDERED: OLANzapine TAB* 5 MG PO SCH (21:00)
[2017-06-28] MEDS: FLUoxetine CAP* 20 MG PO SCH (08:00)
[2017-06-28] MEDS: Omeprazole CAP* 20 MG PO SCH (08:00)
[2017-06-28] MEDS: Insulin LISPRO* 1 UNITS UNIT SUBCUT SCH ×4 (08:04→17:10)
[2017-06-28] MEDS: Nicotine PATCH 21 MG/24 HR* PATCH TRANSDERM SCH (08:05)
[2017-06-28] MEDS ORDERED: Insulin GLARGINE(*) 1 UNITS UNIT SUBCUT SCH ×2 (09:00→11:03)
[2017-06-28] MEDS ORDERED: Influenza VAC *QUAD* 2017-18* 0.5 ML SYRINGE IM ONE (11:00)
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
[2017-06-28] MEDS: Acetaminophen TAB* 325 MG PO PRN (18:21)
[2017-06-28] MEDS: Nicotine Patch Removal NOTE FOLLOW UP SCH (20:48)
[2017-06-29] MEDS: FLUoxetine CAP* 20 MG PO SCH (07:49)
[2017-06-29] MEDS: Omeprazole CAP* 20 MG PO SCH (07:49)
[2017-06-29] MEDS ORDERED: Insulin GLARGINE(*) 1 UNITS UNIT SUBCUT SCH (08:10)
[2017-06-29] MEDS: Nicotine PATCH 21 MG/24 HR* PATCH TRANSDERM SCH (08:16)
[2017-06-29 08:35] VITALS: BP 103/62
[2017-06-29] MEDS: Insulin LISPRO* 1 UNITS UNIT SUBCUT SCH (08:42)
[2017-06-29] MEDS: Acetaminophen TAB* 325 MG PO PRN (11:14)
[2017-06-29] MEDS ORDERED: Insulin LISPRO* 1 UNITS UNIT SUBCUT ONE ×2 (12:49→12:53)
[2017-06-29] MEDS ORDERED: Dextrose 50% Syringe 50 ML* 25 GM/50 ML SYRINGE IV PUSH PRN (12:49)
--- NOTE | 2017-06-30 03:37 | DS ---
DISCHARGE SUMMARY: DATE OF ADMISSION: 06/27/17 DATE OF DISCHARGE: 06/29/17 DISCHARGE DIAGNOSES: As follows: [place] I: Major depressive disorder, recurrent, severe, without psychotic features; rule out attention deficit hyperactivity disorder. [place] II: Questionable cluster B traits. [place] III: Diabetes mellitus, back pain, hyperlipidemia, asthma, gastroesophageal reflux disease. [place] IV: Severe primary support and financial stressors. [place] V: At the time of admission was 45 and at the time of discharge is 60. CONDITION AT THE TIME OF DISCHARGE: Stable. The patient is calm and cooperative. His blood glucose is within the normal range this morning. He has been safe on all checks and continues to steadfastly deny suicidal or homicidal ideations. We have spoken with both his mother and his stepfather who are his main sources of support in the community and they are both indicating that he is at his baseline and safe to receive treatment in an outpatient setting. The patient has tolerated the increase in his antidepressant well. 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 He is looking forward to spending time with his children for the holiday season. He is appropriately requesting discharge. He is calm, cooperative, expressive, and we see no further benefit of forced inpatient treatment. MENTAL STATUS EXAMINATION: At the time of discharge, the patient is a young white male, who is somewhat short and slender with long brown hair and eye glasses. He is wearing a black hooded sweatshirt, he is in bed sitting up style, making good eye contact. He is calm, cooperative, answering questions appropriately. Speech with a normal rate, tone, and volume. Mood is euthymic with a full affect. Thought process is linear and goal directed. Thought content is significant for his desire to leave the hospital and to be with his family for his holidays. He denies suicidal or homicidal ideations. He denies auditory or visual hallucinations. Insight and judgment are fair given his willingness to follow up with outpatient treatment as he has accepted a referral to the [facility]. Cognitively, he is awake and alert with what would appear to be an average intellect. DISCHARGE INSTRUCTIONS: To the patient are as follows: A. Medications: The patient is on: 1. Humalog insulin 30 units subcutaneously 3 times daily with meals. 2. He is on Lantus insulin 60 units subcutaneously every morning. 3. Albuterol inhaler 2 puffs inhaled every 4 hours as a p.r.n. for wheezing. 4. Oxycodone 5 mg p.o. q.h.s. as a p.r.n. for back pain. 5. Atarax 10 mg p.o. daily. 6. Omeprazole 40 mg p.o. daily. 7. He is on fluoxetine 40 mg p.o. daily. In addition, we have granted him outpatient prescriptions for a new glucometer as well as a 25-day supply of glucose monitoring test strips. B. Diet: Diabetic. C. Activities: As tolerated. Please note that the patient is a daily tobacco smoker. At this time, he is refusing continuation of the nicotine replacement therapies that he has received on our unit. He states that his intention is to continue smoking for the time being. We have referred him to the [facility] Smokers' Quit[facility], which is a toll free number at [phone] should he change his mind. There are no laboratory or diagnostic studies pending at the time of discharge. D. Followup Care: The patient will be scheduled for an intake at the [facility] within 1 week of discharge. He is also to follow up with his primary care provider, a family practice nurse practitioner named Alejandra Brito, at [facility]. E. Substance abuse followup: Nonapplicable. HOSPITAL COURSE: Part-A: Reason for admission: The patient is a 31-year-old, , diabetic white male with a history of depression and untreated ADHD, who was transferred from the medical service following medical stabilization of hyperglycemia, who now arrives on our unit due to suicidal statements that he had texted to his estranged on the evening of his ER presentation. Apparently, he had taken 100 units of insulin resulting in extremely low blood glucose upon presentation. While he was in the emergency room staff received a phone call from his mother, Alice Crawford, who alerted ED staff to the fact that he had made suicidal statements to his estranged . In fact, he apparently had told his that he would imminently end his own life just after leaving the hospital. The patient steadfastly denied making those statements and when confronted with the text, he stated that this was only because his thinking becomes confused when his blood glucose is low. He was initially medically cleared and orders were rendered for him to come to the inpatient psychiatric unit. However, his blood glucose spiked to a value greater than 600 and he was instead admitted to the medical service. There, they made some adjustments to his diabetic regimen and he was medically cleared once again for transfer to the [facility]. When I met with him on the psychiatric unit , All was irritable and quite upset about being admitted to Behavioral Health , feeling that this was unjustified and unwarranted given the fact that the statements had only come when his blood glucose was extremely low. He stated " I only came here because my sugar was low. If I had wanted to kill myself, why would I even come to the hospital." He did admit that while taking the insulin , he was upset because his had picked a fight with him through text messages. He was quoted as saying "I make these statements all the time, but everybody knows that I don't act on them, I never would." Mostly, he was blaming his problems on his mother and his stating that they are living together raising his children and that they "feed off each other." He was asked about neurovegetative symptoms of depression and he did endorse both poor sleep and anhedonia, although notably he underreported feelings of guilt, energy disturbance, concentration problems, appetite disturbance, psychomotor retardation, or suicidal ideations. For collateral information, I spoke with his mother, Alice Crawford, and she confirms that she had been shown the text messages. She does point out that he never sends similar messages to either her or his stepfather but only to his and for this reason, she feels that he is trying to manipulate into guilting his ex- back together with him. She did not feel that inpatient psychiatric treatment was likely to be beneficial. We also talked to his stepfather, Saúl Crawford, who similarly felt that the admission was unwarranted. He confirmed All's account that these statements are only made in text messages with his when his blood glucose is low. Part-B: Psychiatric treatment rendered: The patient was admitted to the adult behavioral health unit where he was placed on q.15-minute checks for his own safety. We did increase his fluoxetine 20 mg p.o. daily to a total dose of 40 mg daily, which he was agreeable with and tolerated well. We talked to him several times about the helpfulness of psychotherapy in the community and eventually he did agree to follow up with the [facility]. All throughout this hospitalization denied any thoughts of harming himself. For blood glucose control, he was followed by the hospitalist nurse practitioner, Gricelda Quijano, who had been his treatment provider on the 3rd floor prior to transfer. She is recommending at this time that he go back to his outpatient insulin control regimen and we are referring him back to [facility] for this issue. Notably, he is stating that he does not have a working glucometer and so this was called in along with glucose monitoring test strips. All has been safe on all checks throughout this hospitalization, although he declined to participate in groups saying that he is not a "people person," he was cooperative with this interviewer, and he steadfastly denies any thoughts of hurting himself, instead he is future oriented, looking forward to being with his family for the holidays and wanting to work things out with his . At this time, I do not feel that the hospital has any justification for further involuntary treatment. [id number]/[facility] #: [id number] MELLISA
== END 2017-06-29 13:15 | disposition home or self-care (01) | DRG 751 ==
LOC: BSU 20:07
PROVIDERS: ADMIT Psychiatry & Neurology Psychiatry; ATTEND Psychiatry & Neurology Psychiatry
DX: F33.2 Major depressive disorder, recurrent severe without psychotic features (principal); E11.9 Type 2 diabetes mellitus without complications; F90.9 Attention-deficit hyperactivity disorder, unspecified type; M54.9 Dorsalgia, unspecified; E78.5 Hyperlipidemia, unspecified; J45.909 Unspecified asthma, uncomplicated; K21.9 Gastro-esophageal reflux disease without esophagitis; F17.210 Nicotine dependence, cigarettes, uncomplicated; Z81.8 Family history of other mental and behavioral disorders; Z79.4 Long term (current) use of insulin
CPT/HCPCS: 36415; 82947; 90686; 99222; 99238; A9270-GY